=== PATIENT | female | born 1980 | race Caucasian/White ===

== ENCOUNTER 2019-01-13 19:56 | Emergency (ER) | payer OTHER ==
[2019-01-13 20:08] VITALS: BP 114/75; PULSE 64; RESP 18; TEMP 98.4
[2019-01-13] MEDS ORDERED: METHOCARBAMOL 750 MG TAB PO STA (20:27)
--- NOTE | 2019-01-13 20:27 | ED ---
Back Pain HPI - General Chief Complaint: Back Pain/Injury Stated Complaint: Back pain Source: patient Limitations: no limitations - History of Present Illness Initial Comments: The patient is a 38-year-old female presents emergency department with complaint of lumbar back pain. Patient states that she recently drove here from [place]. She states that she must have sat awkwardly in the car as she did develop low back pain. States that today the pain got significantly worse. Is located across her lower lumbar region without radiation to her laboratories. The pain is made worse with bending forward. She took Motrin at home and states that it did not help her symptoms. She did make an appointment with the chiropractor for the pain was so severe that she came into the room for evaluati on. She denies a history of IVDA. No history of cancer. She denies any saddle anesthesia or bowel bladder incontinence. Denies any weakness or lower extremities. No numbness or tingling. She denies any neck or thoracic back pain. No fevers or chills. Denies any anterior abdominal pain. No reported blood trauma. There are no alleviating, persistent modifying factors - Related Data Home Medications Medication Instructions Recorded Confirmed Ibuprofen [Motrin Ib] 800 mg PO Q6H PRN 01/13/19 01/13/19 diphenhydrAMINE HCL [Benadryl] 25 mg PO HS 01/13/19 01/13/19 Previous Rx's Medication Instructions Recorded Methocarbamol [Robaxin] 750 mg PO TID PRN #15 tab 01/13/19 Allergies Allergy/AdvReac Type Severity Reaction Status Date / Time No Known Allergies Allergy Verified 01/13/19 20:38 Review of Systems ROS Statement: Those systems with pertinent positive or pertinent negative responses have been documented in the HPI. ROS Other: All systems not noted in ROS Statement are negative. Past Medical History Past Medical History: No Reported History History of Any Multi-Drug Resistant Organisms: None Reported Past Surgical History: Tubal Ligation Additional Past Surgical History / Comment(s): partial thyroidectomy, d&C Past Psychological History: No Psychological Hx Reported Smoking Status: Current every day smoker Past Alcohol Use History: None Reported Past Drug Use History: None Reported General Exam Limitations: no limitations Course Vital Signs 01/13/19 20:03 Temperature 98.4 F Pulse Rate 64 Respiratory 18 Rate Blood Pressure 114/75 O2 Sat by Pulse 99 Oximetry Medical Decision Making - Medical Decision Making The patient was placed into room 12. I did discuss the diagnosis, differential and treatment options. He did provide the patient with Robaxin. She is sent over for CT of her lumbar spine. CT does reveal a disc bulge at levels L4-L5 and L5-S1. I did discuss results results with the patient. There is no central canal stenosis. The patient feels mildly improved with the muscle relaxer. I did further offer a dose of Toradol for which the patient did agree. She was given 30 mg IM. Inform the patient that she must follow-up with her primary care physician within one to 2 days. She may require physical therapy as well as further treatment options. The patient understood this. She has any new or worsening symptoms she should return the emergency room. Patient was reevaluated and continued demonstrate no signs of cauda equina. The patient wasn't discharged home ambulatory in stable condition Disposition Clinical Impression: Lumbar back pain, Bulging lumbar disc Disposition: HOME SELF-CARE Condition: Stable Instructions (If sedation given, give patient instructions): Acute Low Back Pain (ED), Back Pain (ED) Additional Instructions: Please follow-up with your primary care doctor in 2-4 days. Return to the emergency department for any new or worsening symptoms Prescriptions: Methocarbamol [Robaxin] 750 mg PO TID PRN #15 tab PRN Reason: Pain Is patient prescribed a controlled substance at d/c from ED?: No Referrals: None,Stated [Primary Care Provider] - 1-2 days Time of Disposition: 21:15
--- NOTE | 2019-01-13 20:45 | CT ---
EXAMINATION TYPE: CT lumbar spine wo con DATE OF EXAM: 01/13/2019 8:40 PM COMPARISON: None HISTORY: low back pain. no specific injury. CT DLP: 730 mGycm Automated exposure control for dose reduction was used. Unenhanced CT of the lumbar spine was performed. Bone and soft tissue window settings are submitted as well as coronal and sagittal reconstructions. Lumbar vertebra have fairly normal spacing and alignment. There is no lumbar paraspinal mass. There i s no spinal stenosis. There is no compression fracture. There is posterior central disc herniation at L5-S1. There are small posterior disc bulging at L4-5. There is no significant spinal stenosis. Ther e is developmentally adequate spinal canal. I see no focal bone destruction. Sacroiliac joints appear normal. There is no lumbar paraspinal mass. IMPRESSION: Posterior disc bulging and herniation at L4-5 and L5-S1 without significant spinal stenosis. No fract ure.
[2019-01-13] MEDS ORDERED: KETOROLAC 60 MG/2 ML VIAL IM STA (21:13)
== END 2019-01-13 21:42 | disposition home or self-care (01) ==
LOC: EC 19:56
DX: M51.26 Other intervertebral disc displacement, lumbar region (principal); M51.27 Other intervertebral disc displacement, lumbosacral region; F17.200 Nicotine dependence, unspecified, uncomplicated; Z90.89 Acquired absence of other organs; Z98.51 Tubal ligation status; Z79.899 Other long term (current) drug therapy; X50.1XXA Overexertion from prolonged static or awkward postures, initial encounter; Y92.009 Unspecified place in unspecified non-institutional (private) residence as the place of occurrence of the external cause; Y93.E2 Activity, laundry
CPT/HCPCS: 72131; 99283; 96372; J1885